=== PATIENT | male | born 1960 | race African-American/Black ===

== ENCOUNTER 2017-12-08 07:44 | Day surgery (SDC) | payer OTHER ==
[2017-12-08] MEDS ORDERED: LIDOCAINE 2% MPF 5 ML VIAL ONE (07:57)
[2017-12-08] MEDS ORDERED: BUPIVACAINE 0.25% PF 10 ML VIAL ONE (07:57)
[2017-12-08] MEDS ORDERED: CYCLOPENTOLATE 1% OPTH 2 ML ONE (07:57)
[2017-12-08] MEDS ORDERED: TETRACAINE HCL 0.5% 2ML OPTH ONE (07:57)
[2017-12-08] MEDS ORDERED: NA CHLORIDE 0.9% 500 ML ONE (07:58)
[2017-12-08] MEDS ORDERED: PHENYLEPHRINE 10% OPTH 5ML ONE (07:58)
[2017-12-08] MEDS ORDERED: LIDOCAINE HCL/PF 3.5% OPTH GEL ONE (07:58)
[2017-12-08] MEDS ORDERED: NS 0.9% VIAL 10 ML ONE (08:08)
[2017-12-08] MEDS ORDERED: EPINEPHRINE/PF 1 MG/ML AMP ONE (08:09)
[2017-12-08] MEDS ORDERED: BALANCED SALT IRRIG PLAIN 500 ML BTL IRR ONE (08:09)
[2017-12-08] MEDS ORDERED: DUOVISC 1 KIT OPTH ONE (08:09)
[2017-12-08] MEDS ORDERED: LIDOCAINE 1% MPF 2 ML AMPULE ONE (08:09)
[2017-12-08] MEDS ORDERED: MOXIFLOXACIN HCL 10 DROPS/ML **OR USE OPTH ONE (08:09)
[2017-12-08] MEDS ORDERED: CYCLOPENTOLATE 1% OPTH 2 ML OPTH ONE ×2 (08:18→08:25)
[2017-12-08] MEDS ORDERED: PHENYLEPHRINE 10% OPTH 5ML OPTH ONE ×2 (08:18→08:25)
[2017-12-08] MEDS ORDERED: MIDAZOLAM HCL 2 MG/2 ML INJ ONE (09:28)
[2017-12-08] MEDS ORDERED: FENTANYL CITR 100 MCG/2 ML ONE (09:28)
--- NOTE | 2017-12-08 10:25 | P.BOP ---
Preoperative diagnosis: Cortical cataract OD Postoperative diagnosis: Same Primary procedure: Phacoemulsification with IOL OD Estimated blood loss: None Anesthesia: Local (Topical with anesthesia for cataract surgery) Complications: None Implants: ZCB00 +22.5 Transferred to: Other (Day surgery) Condition: Good
--- NOTE | 2017-12-08 11:38 | OP ---
Date of Procedure: 12/08/2017 Surgeon: Brittany Dixon MD Anesthesiologist: 1. Oc Canada C.R.N.A. 2. Sheyla Ojeda C.R.N.A. 3. David Cash M.D. Preoperative Diagnosis: Cortical cataract, right eye. Operation Performed: Phacoemulsification with intraocular lens implant, right eye. Anesthesia: Per cataract surgery Complications: None. Description Of Procedure: In the operating room the patient was prepped and draped in the usual ster ile fashion for ophthalmic surgery. A lid speculum was placed in the right eye. Two paracentesis si sophie were made superiorly and inferiorly in the limbal cornea. Viscoat was placed in the anterior remigio mber and a crescent blade was used to make a corneal groove and tunnel, and a keratome was used to en ter the anterior chamber. Provisc was placed in the anterior chamber and a 360 degree capsulotomy wa s performed with a cystitome. The lens was hydrodissected with BSS and rotated freely. The lens was removed with a stop and chop technique. 4.27 phaco CDE was used to remove the lens. Residual benny x was removed with the irrigation and aspiration. Provisc was placed in the capsular bag. A ZCB00 + 22.5 lens was placed in the capsular bag without complications. Irrigation and aspiration was used t o remove residual viscoelastic. The paracentesis sites were hydrated with BSS. The wound and parace ntesis sites were inspected and found to be watertight. Vigamox 0.07 cc was placed intracamerally at the end of the procedure. The eye was irrigated with balanced salt solution. The eye was patched w ith a soft cotton patch and Victor metal shield. The patient was returned to day surgery in good condition. Comments: Akten placed in the eye in Day surgery and irrigated out the eye with BSS in the OR. Pres ervative free 1% lidocaine was placed in the anterior chamber prior to Viscoat. The lens was hydrode lineated rather than hydrodissected. Discharge Instructions: Mr. Pennington is discharged to home in good condition and is to follow up michael Dixon in the morning. ANTONIO/MODL Voice ID: [id number] Report ID: [id number]
== END 2017-12-08 11:00 | disposition home or self-care (01) ==
LOC: OR 07:44
PROVIDERS: ATTEND Ophthalmology Retina Specialist
PROC: 08RJ3JZ Replacement of Right Lens with Synthetic Substitute, Percutaneous Approach (ICD-10-PCS; principal; 2017-12-08 09:30)
DX: H25.011 Cortical age-related cataract, right eye (principal); H25.11 Age-related nuclear cataract, right eye; E11.319 Type 2 diabetes mellitus with unspecified diabetic retinopathy without macular edema; E66.9 Obesity, unspecified; F17.220 Nicotine dependence, chewing tobacco, uncomplicated; Z83.3 Family history of diabetes mellitus; Z83.518 Family history of other specified eye disorder
CPT/HCPCS: 82962; J0171; J2001; J2250; J3010